=== PATIENT | female | born 1970 | race Caucasian/White ===

== ENCOUNTER 2017-02-20 12:11 | Day surgery (SDC) | payer OTHER, BC ==
[~2017-02-20] VITALS: Ht 177.8 cm; Wt 81.6 kg
[~2017-02-20 12:11] MED LIST: COZAAR25 MG PO; CYTOMEL5 MCG PO; DILAUDID2 MG PO; FLEXERIL5 MG PO; LISINOPRIL10 MG PO; MIDOL COMPLETE1 EACH PO; NAPROSYN500 MG PO; ONDANSETRON ODT4 MG PO; OXYCODONE-APAP1 EACH PO; PROZAC40 MG PO; SYNTHROID175 MCG PO; SYNTHROID200 MCG PO; TYLENOL WITH C1 EACH PO
[2017-02-20 13:01] VITALS: BP 150/95
[2017-02-20 16:55] VITALS: BP 159/87
[2017-02-20 17:35] VITALS: BP 138/82
== END 2017-02-20 18:00 | disposition home or self-care (01) ==
LOC: SDC 12:11 → 2SOUTH 15:29 → ENRESERV 15:30 → CANRESERV 15:43 → 2SOUTH 18:00
DX: D36.10 Benign neoplasm of peripheral nerves and autonomic nervous system, unspecified (principal); I10 Essential (primary) hypertension; E03.9 Hypothyroidism, unspecified; F41.8 Other specified anxiety disorders; Z85.820 Personal history of malignant melanoma of skin; J45.909 Unspecified asthma, uncomplicated
CPT/HCPCS: 88305; 93005; G0378; J0690; J1170; J1885; J2250; J2405; J3010; S0020